=== PATIENT | female | born 1965 | race Caucasian/White ===

== ENCOUNTER 2020-10-02 11:41 | Emergency (ER) | payer OTHER, SELFPAY ==
[2020-10-02 11:42] VITALS: BP 146/81; PULSE 82; RESP 18; TEMP 36.6; O2SAT 100; BMI 37.8
--- NOTE | 2020-10-02 12:02 | ED.VIS.GEN ---
History of Present Illness Chief Complaint: Lower Extremity Injury Narrative: Patient is a 55-year-old female with a past medical history of GERD who presents to the ED for low back pain. This mostly is in the left buttocks and goes down the leg. She has been having the symptoms for the past 2 to 3 weeks. She states that certain movements seem to set it off but is not sure what it is mostly random. She did see her chiropractor and had massages which previously helped. She had a massage last night and is not getting any relief today. She is currently denying any symptoms as it does come and go. She denies any loss of sensation of the leg. No urinary retention. No saddle anesthesia. He has had issues like this for years. She states she tried to take 1 muscle relaxer but ran out. Denies any falls or trauma. Denies any chest pain or shortness of breath. Past Medical History - Allergies and Home Meds Allergies/Adverse Reactions: Allergies No Known Allergies Allergy (Verified 10/02/20 11:43) Primary Care Physician: Jaya Michael MD [Primary Care Provider] - 3-5 Days if not improving Past Medical History: - - Acid reflux Surgical History: noncontributory Smoking Status: Never smoker Review of Systems All systems negative except as indicated General: Denies: Chills, Fever, Sweats Eyes: Denies: Visual changes - bilaterally, Diplopia ENT: Denies: Rhinorrhea, Sore throat Cardiovascular: Denies: Chest pain, Palpitations Respiratory: Denies: Dyspnea, Cough, Dyspnea on exertion Gastrointestinal: Denies: Abdominal pain, Nausea, Vomiting Genitourinary: Denies: Dysuria, Hematuria, Frequency Musculoskeletal: Reports: Back pain, Extremity Pain. Denies: Neck pain, Swelling Skin: Denies: Rash, Wounds Neurological: Denies: Headache, Weakness, Numbness Physical Exam Vital Signs/Narrative: Vital Signs Temp Pulse Resp BP Pulse Ox 10/02/20 11:42 97.8 F 82 18 146/81 H 100 General: Well nourished, Well developed, No Acute Distress Head: Normocephalic, Atraumatic Eyes: Perrl, EOMI ENT: Moist mucous membranes, No rhinorrhea Neck: Supple, Nontender Cardiovascular: Regular rate, Regular rhythm, No murmurs Respiratory: No distress, CTA bilaterally, Chest nontender Abdomen: Soft, Nontender, Nondistended Back: Nontender, Normal Inspection, - - Negative straight leg test. Neurovascular intact. 5 out of 5 muscle strength. Full range of motion of lower extremities.. Negative for: Spinal tenderness Extremities: Nontender, No edema. Negative for: Calf Tenderness Skin: Normal color, No rash Neurological: Alert, Oriented x3, Cranial nerves II-XII grossly intact, Normal Strength, Normal Sensation Psychological: Normal affect, Normal Mood Diagnostic/Tx/Re-eval - Medical Decision Making Patient presents to the ED for nontraumatic acute on chronic low back pain. This does go down the left leg. Exam is benign and she is not having any active pain here. She is requesting a dose of anti-inflammatory and will give her dose of Toradol. We will write a prescription for Flexeril and Naprosyn for home treatment. She is to follow-up with her PCP. Did recommend stretching, resting, heating over the area. Return precautions were reviewed with her. She understands and is agreeable to plan. Discharged home in stable condition. All questions were answered. ED Disposition - Plan for ED Patient: Disposition: Home or Assisted Living Diagnosis: Low back pain Instructions: ED Back Pain (Acute or Chronic) Prescriptions: cycloBENZAPRine HCl [Flexeril] 5 mg PO TID PRN 3 Days #9 tab PRN Reason: Muscle Spasm Transmission Status: Received by [id number] Naproxen [Naprosyn] 500 mg PO BID PRN PRN 10 Days #20 tab PRN Reason: Pain/Inflammation Transmission Status: Received by [id number] Referrals: Jaya Michael MD [Primary Care Provider] - 3-5 Days if not improving
[2020-10-02] MEDS: Ketorolac 30 MG/ML Syringe IM (12:07)
== END 2020-10-02 12:55 | disposition home or self-care (01) ==
LOC: ED 12:13
PROVIDERS: Emergency Provider Emergency Medicine; PCP Family Medicine
DX: M54.5 Low back pain (principal); G89.29 Other chronic pain; K21.9 Gastro-esophageal reflux disease without esophagitis
CPT/HCPCS: 96372; 99282